=== PATIENT | female | born 1975 | race Caucasian/White ===

== ENCOUNTER 2017-03-05 05:29 | Emergency (ER) | payer SELFPAY ==
[2017-03-05 05:39] VITALS: RESP 18
[2017-03-05] MEDS ORDERED: SODIUM CHLORIDE 0.9% 1,000 ML IV STA (05:49)
[2017-03-05] MEDS ORDERED: ACETAMINOPHEN IV (For NPO) 1,000 MG in SALINE 1 100ML.BAG IVPB STA (05:50)
--- NOTE | 2017-03-05 05:53 | ED ---
Lower Extremity Injury HPI - General Source: patient, RN notes reviewed Mode of arrival: ambulatory Limitations: no limitations <Mason Tompkins - Last Filed: 03/05/17 06:50> <Leandro Degroot - Last Filed: 03/05/17 08:13> - General Chief Complaint: Extremity Injury, Lower Stated Complaint: Leg Pain Time Seen by Provider: 03/05/17 05:35 - History of Present Illness Initial Comments: This is a 41-year-old female who presents with complaints of the onset of bilateral thigh pain. She states is 10/10 dull and achy in nature does not radiate to the back she denies any trauma denies any low back pain she has had low-grade fever today denies any diarrhea sore throat or other symptomatology. No recent long trips pain. She states her hurts to move. (Mason Tompkins) - Related Data Previous Rx's Medication Instructions Recorded Cyclobenzaprine [Flexeril] 10 mg PO TID PRN #12 tablet 03/05/17 Allergies Allergy/AdvReac Type Severity Reaction Status Date / Time aspirin Allergy Rash/Hives Verified 03/05/17 06:59 NSAIDS (Non-Steroidal AdvReac Unknown Verified 03/05/17 06:59 Anti-Inflamma Review of Systems ROS Other: All systems not noted in ROS Statement are negative. <Mason Tompkins - Last Filed: 03/05/17 06:50> ROS Other: All systems not noted in ROS Statement are negative. <Lenadro Degroot - Last Filed: 03/05/17 08:13> ROS Statement: Those systems with pertinent positive or pertinent negative responses have been documented in the HPI. Past Medical History Past Medical History: Chest Pain / Angina, Renal Disease, Seizure Disorder, Thyroid Disorder Additional Past Medical History / Comment(s): HX CP ON/OFF SINCE 2008; BLOOD PRESSURE/HR LOW, LIGHTHEADED OCC. SEIZURES YOUNG CHILD, NONE SINCE AGE 4-5. HAS VERY LARGE THYROID NODULES, BX DONE, TO F/U W/ . History of Any Multi-Drug Resistant Organisms: None Reported Past Surgical History: Tubal Ligation Additional Past Surgical History / Comment(s): thyroid biopsy Past Anesthesia/Blood Transfusion Reactions: Previous Problems w/ Anesthesia Additional Past Anesthesia/Blood Transfusion Reaction / Comment(s): TAKES LONG TIME TO WAKE UP. Past Psychological History: No Psychological Hx Reported Smoking Status: Current every day smoker Past Alcohol Use History: Occasional Past Drug Use History: None Reported - Past Family History Mother Family Medical History: Cancer <Mason Tompkins - Last Filed: 03/05/17 06:50> General Exam Limitations: no limitations General appearance: alert, anxious, in distress Head exam: Present: atraumatic, normocephalic, normal inspection Eye exam: Present: normal appearance, PERRL, EOMI. Absent: scleral icterus, conjunctival injection, periorbital swelling ENT exam: Present: normal exam, mucous membranes moist Neck exam: Present: normal inspection. Absent: tenderness, meningismus, lymphadenopathy Respiratory exam: Present: normal lung sounds bilaterally. Absent: respiratory distress, wheezes, rales, rhonchi, stridor Cardiovascular Exam: Present: regular rate, normal rhythm, normal heart sounds. Absent: systolic murmur, diastolic murmur, rubs, gallop, clicks GI/Abdominal exam: Present: soft, normal bowel sounds. Absent: distended, tenderness, guarding, rebound, rigid Extremities exam: Present: normal inspection, full ROM, normal capillary refill. Absent: tenderness, pedal edema, joint swelling, calf tenderness Back exam: Present: normal inspection Neurological exam: Present: alert, oriented X3, CN II-XII intact Psychiatric exam: Present: normal affect, normal mood Skin exam: Present: warm, dry, intact, normal color. Absent: rash <Mason Tompkins - Last Filed: 03/05/17 06:50> <Leandro Degroot - Last Filed: 03/05/17 08:13> - General Exam Comments Initial Comments: This a well-developed well-nourished awake alert oriented 3 female (Mason Tompkins) Vital Signs 03/05/17 03/05/17 05:33 07:36 Temperature 99.3 F 97.7 F Pulse Rate 81 85 Respiratory 18 18 Rate Blood Pressure 141/61 122/78 O2 Sat by Pulse 98 99 Oximetry Medical Decision Making - Lab Data Result diagrams: 03/05/17 06:10 03/05/17 06:10 - Radiology Data Radiology results: report reviewed (I did review the imaging and reports no acute findings.), image reviewed <Mason Tompkins - Last Filed: 03/05/17 06:50> - Lab Data Result diagrams: 03/05/17 06:10 03/05/17 06:10 <Leandro Degroot - Last Filed: 03/05/17 08:13> - Medical Decision Making Patient reevaluated and symptom-free following ofirmev. Patient states discomfort felt like muscle spasm of her thighs. No pain on exam. No swelling. No calf tenderness. No weakness. Pedal pulses 2/2 bilateral. Patient updated on results. (Leandro Degroot) - Lab Data Lab Results 03/05/17 03/05/17 03/05/17 Range/Units 06:10 06:10 06:10 WBC 5.0 (3.8-10.6) k/uL RBC 4.40 (3.80-5.40) m/uL Hgb 13.0 (11.4-16.0) gm/dL Hct 39.8 (34.0-46.0) % MCV 90.5 (80.0-100.0) fL MCH 29.5 (25.0-35.0) pg MCHC 32.6 (31.0-37.0) g/dL RDW 14.4 (11.5-15.5) % Plt Count 248 (150-450) k/uL Neutrophils % 49 % Lymphocytes % 35 % Monocytes % 6 % Eosinophils % 5 % Basophils % 1 % Neutrophils # 2.4 (1.3-7.7) k/uL Lymphocytes # 1.8 (1.0-4.8) k/uL Monocytes # 0.3 (0-1.0) k/uL Eosinophils # 0.3 (0-0.7) k/uL Basophils # 0.1 (0-0.2) k/uL Sodium 140 (137-145) mmol/L Potassium 4.4 (3.5-5.1) mmol/L Chloride 106 (98-107) mmol/L Carbon Dioxide 25 (22-30) mmol/L Anion Gap 9 mmol/L BUN 11 (7-17) mg/dL Creatinine 0.61 (0.52-1.04) mg/dL Est GFR (MDRD) Af Amer >60 (>60 ml/min/1.73 sqM) Est GFR (MDRD) Non-Af >60 (>60 ml/min/1.73 sqM) Glucose 121 H (74-99) mg/dL Calcium 8.9 (8.4-10.2) mg/dL Magnesium 1.9 (1.6-2.3) mg/dL Total Bilirubin 0.2 (0.2-1.3) mg/dL AST 30 (14-36) U/L ALT 42 (9-52) U/L Alkaline Phosphatase 69 (38-126) U/L Total Creatine Kinase 76 (30-135) U/L CK-MB (CK-2) <0.2 (0.0-2.4) ng/mL CK-MB (CK-2) Rel Index Total Protein 6.4 (6.3-8.2) g/dL Albumin 3.9 (3.5-5.0) g/dL Urine Color Urine Appearance (Clear) Urine pH (5.0-8.0) Ur Specific [employer] (1.001-1.035) Urine Protein (Negative) Urine Glucose (UA) (Negative) Urine Ketones (Negative) Urine Blood (Negative) Urine Nitrite (Negative) Urine Bilirubin (Negative) Urine Urobilinogen (<2.0) mg/dL Ur Leukocyte Esterase (Negative) Urine RBC (0-5) /hpf Urine WBC (0-5) /hpf Ur Squamous Epith Cells (0-4) /hpf Urine Mucus (None) /hpf 03/05/17 Range/Units 06:15 WBC (3.8-10.6) k/uL RBC (3.80-5.40) m/uL Hgb (11.4-16.0) gm/dL Hct (34.0-46.0) % MCV (80.0-100.0) fL MCH (25.0-35.0) pg MCHC (31.0-37.0) g/dL RDW (11.5-15.5) % Plt Count (150-450) k/uL Neutrophils % % Lymphocytes % % Monocytes % % Eosinophils % % Basophils % % Neutrophils # (1.3-7.7) k/uL Lymphocytes # (1.0-4.8) k/uL Monocytes # (0-1.0) k/uL Eosinophils # (0-0.7) k/uL Basophils # (0-0.2) k/uL Sodium (137-145) mmol/L Potassium (3.5-5.1) mmol/L Chloride (98-107) mmol/L Carbon Dioxide (22-30) mmol/L Anion Gap mmol/L BUN (7-17) mg/dL Creatinine (0.52-1.04) mg/dL Est GFR (MDRD) Af Amer (>60 ml/min/1.73 sqM) Est GFR (MDRD) Non-Af (>60 ml/min/1.73 sqM) Glucose (74-99) mg/dL Calcium (8.4-10.2) mg/dL Magnesium (1.6-2.3) mg/dL Total Bilirubin (0.2-1.3) mg/dL AST (14-36) U/L ALT (9-52) U/L Alkaline Phosphatase (38-126) U/L Total Creatine Kinase (30-135) U/L CK-MB (CK-2) (0.0-2.4) ng/mL CK-MB (CK-2) Rel Index Total Protein (6.3-8.2) g/dL Albumin (3.5-5.0) g/dL Urine Color Light Yellow Urine Appearance Cloudy H (Clear) Urine pH 7.0 (5.0-8.0) Ur Specific [employer] 1.007 (1.001-1.035) Urine Protein Negative (Negative) Urine Glucose (UA) Negative (Negative) Urine Ketones Negative (Negative) Urine Blood Negative (Negative) Urine Nitrite Negative (Negative) Urine Bilirubin Negative (Negative) Urine Urobilinogen <2.0 (<2.0) mg/dL Ur Leukocyte Esterase Small H (Negative) Urine RBC 1 (0-5) /hpf Urine WBC 3 (0-5) /hpf Ur Squamous Epith Cells 13 H (0-4) /hpf Urine Mucus Rare H (None) /hpf Disposition <Mason Tompkins - Last Filed: 03/05/17 06:50> Time of Disposition: 08:13 <Leandro Degroot - Last Filed: 03/05/17 08:13> Clinical Impression: Muscle pain Disposition: HOME SELF-CARE Condition: Stable Instructions: Muscle Spasm (ED), Musculoskeletal Pain (ED) Additional Instructions: Please follow-up to in the next day or 2 for recheck. Return for weakness, increased pain, fevers, swelling, worsening symptoms or other concerns. Prescriptions: Cyclobenzaprine [Flexeril] 10 mg PO TID PRN #12 tablet PRN Reason: Pain Referrals: Turner Palmer DO [Primary Care Provider] - 1-2 days
[2017-03-05 06:31] LABS: ALT 42 U/L (9-52); AST 30 U/L (14-36); Albumin 3.9 g/dL (3.5-5.0); Alkaline Phosphatase 69 U/L (38-126); Anion Gap 9 mmol/L; Blood Urea Nitrogen 11 mg/dL (7-17); Calcium 8.9 mg/dL (8.4-10.2); Carbon Dioxide 25 mmol/L (22-30); Chloride 106 mmol/L (98-107); Glucose 121 mg/dL (74-99); Magnesium 1.9 mg/dL (1.6-2.3); Potassium 4.4 mmol/L (3.5-5.1); Sodium 140 mmol/L (137-145); Total Bilirubin 0.2 mg/dL (0.2-1.3); Total Protein 6.4 g/dL (6.3-8.2)
[2017-03-05 06:36] LABS: Basophils # (A) 0.1 k/uL (0-0.2); Basophils % (A) 1 %; Eosinophils # (A) 0.3 k/uL (0-0.7); Eosinophils % (A) 5 %; HCT 39.8 % (34.0-46.0); Lymphocytes # (A) 1.8 k/uL (1.0-4.8); Lymphocytes % (A) 35 %; MCH 29.5 pg (25.0-35.0); MCHC 32.6 g/dL (31.0-37.0); MCV 90.5 fL (80.0-100.0); Mean Platelet Volume 6.6; Monocytes # (A) 0.3 k/uL (0-1.0); Monocytes % (A) 6 %; Neutrophils # (A) 2.4 k/uL (1.3-7.7); Neutrophils % (A) 49 %; Platelet Count 248 k/uL (150-450); RDW 14.4 % (11.5-15.5)
--- NOTE | 2017-03-05 06:41 | XR ---
EXAMINATION TYPE: XR chest 2V DATE OF EXAM: 03/05/2017 COMPARISON: NONE HISTORY: Cough TECHNIQUE: Frontal and lateral views of the chest are obtained. FINDINGS: There is no focal air space opacity, pleural effusion, or pneumothorax seen. The cardiac silhouette size is within normal limits. The osseous structures are intact. IMPRESSION: No suspicious acute pulmonary process.
--- NOTE | 2017-03-05 06:42 | XR ---
EXAMINATION TYPE: XR lumbosacral spine min 4V DATE OF EXAM: 03/05/2017 CLINICAL HISTORY: Low back and bilateral thigh pain TECHNIQUE: Frontal, lateral, and oblique images of the lumbar spine are obtained. COMPARISON: CT abdomen and pelvis March 10, 2015. FINDINGS: There are 5 lumbar type vertebral bodies identified. The lumbar spine shows satisfactory alignment without evidence of acute fracture or dislocation. Vertebral body heights and disk space he ights are within normal limits. The oblique images appear within normal limits. The overlying soft tissue appears unremarkable. IMPRESSION: No acute fracture or dislocation is seen in the lumbar spine. Fairly unremarkable study. No significant change from comparison CT.
[2017-03-05 06:45] LABS: Appearance,Urine Cloudy (Clear); Bilirubin,Urine Negative (Negative); Blood,Urine Negative (Negative); Color,Urine Light Yellow; Glucose,Urine (UA) Negative (Negative); Ketones,Urine Negative (Negative); Leukocyte Esterase,Urine Small (Negative); Mucus,Urine Rare /hpf; Nitrite,Urine Negative (Negative); Protein,Urine Negative (Negative); RBC,Urine 1 /hpf (0-5); Specific Gravity,Urine 1.007 (1.001-1.035); Squamous Epithelial Cell,Urine 13 /hpf (0-4); Urobilinogen,Urine <2.0 mg/dL (<2.0); WBC,Urine 3 /hpf (0-5)
[2017-03-05 06:53] LABS: Creatine Kinase 76 U/L (30-135)
[2017-03-05 07:03] LABS: Creatine Kinase MB <0.2 ng/mL (0.0-2.4)
[2017-03-05 08:22] VITALS: BP 128/72; PULSE 78; TEMP 98
== END 2017-03-05 08:22 | disposition home or self-care (01) ==
LOC: EC 05:29
DX: M79.1 Myalgia (principal); F17.200 Nicotine dependence, unspecified, uncomplicated; Z88.6 Allergy status to analgesic agent
CPT/HCPCS: 36415; 80053; 82550; 82553; 83735; 85025; 81001; 72110; 71046; 99283; 96365; J0131

== ENCOUNTER 2018-01-12 09:26 | Emergency (ER) | payer OTHER ==
[2018-01-12 09:36] VITALS: RESP 18
[2018-01-12] MEDS ORDERED: KETOROLAC 60 MG/2 ML VIAL IM STA (09:46)
--- NOTE | 2018-01-12 09:50 | ED ---
General Adult HPI - General Chief complaint: Chest Pain Stated complaint: CHEST PAIN Time Seen by Provider: 01/12/18 09:30 Source: patient, EMS, RN notes reviewed Mode of arrival: EMS Limitations: no limitations - History of Present Illness Initial comments: This is a 42-year-old female who presents emergency department complaining of right-sided chest pain. Patient states it started 1 week ago when she had a big sneeze and ever since that it hurts to touch. It hurts take a deep breath per patient states the symptoms seem to be getting worse per patient denies any anterior chest pain. Patient denies any difficulty breathing shortness of breath though it does hurt to take a deep breath. Patient denies any diaphoretic episodes. Patient denies any radiation of pain. Patient denies any nausea vomiting per patient denies any abdominal pain. Patient states the pain is reproducible with palpation on her chest per patient states she breathes shallowly does not hurt. Patient states she normally doesn't take NSAIDs because she feels as though it makes her loopy but she states she is not actually ALLERGIC to them. Patient is requesting an NSAID at this time. Patient is not a diabetic is not hypertensive does not have high cholesterol. Patient states she has no family history of heart disease. Patient states she has an occasional smoker. Patient states she has noted no increase in pain with exertion. - Related Data Home Medications Medication Instructions Recorded Confirmed No Known Home Medications 01/12/18 01/12/18 Allergies Allergy/AdvReac Type Severity Reaction Status Date / Time aspirin Allergy Rash/Hives Verified 01/12/18 10:14 NSAIDS (Non-Steroidal AdvReac Unknown Verified 01/12/18 10:14 Anti-Inflamma Review of Systems ROS Statement: Those systems with pertinent positive or pertinent negative responses have been documented in the HPI. ROS Other: All systems not noted in ROS Statement are negative. Past Medical History Past Medical History: Chest Pain / Angina, Renal Disease, Seizure Disorder, Thyroid Disorder Additional Past Medical History / Comment(s): HX CP ON/OFF SINCE 2008; BLOOD PRESSURE/HR LOW, LIGHTHEADED OCC. SEIZURES YOUNG CHILD, NONE SINCE AGE 4-5. HAS VERY LARGE THYROID NODULES, BX DONE, TO F/U W/ . History of Any Multi-Drug Resistant Organisms: None Reported Past Surgical History: Tubal Ligation Additional Past Surgical History / Comment(s): thyroid biopsy Past Anesthesia/Blood Transfusion Reactions: Previous Problems w/ Anesthesia Additional Past Anesthesia/Blood Transfusion Reaction / Comment(s): TAKES LONG TIME TO WAKE UP. Past Psychological History: No Psychological Hx Reported Smoking Status: Current every day smoker Past Alcohol Use History: Occasional Past Drug Use History: None Reported - Past Family History Mother Family Medical History: Cancer General Exam - General Exam Comments Initial Comments: GENERAL: Patient is well-developed and well-nourished. Patient is nontoxic and well- hydrated and is in mild distress. ENT: Neck is soft and supple. No significant lymphadenopathy is noted. Oropharynx is clear. Moist mucous membranes. Neck has full range of motion without eliciting any pain. EYES: The sclera were anicteric and conjunctiva were pink and moist. Extraocular movements were intact and pupils were equal round and reactive to light. Eyelids were unremarkable. PULMONARY: Unlabored respirations. Good breath sounds bilaterally. No audible rales rhonchi or wheezing was noted. CARDIOVASCULAR: There is a regular rate and rhythm without any murmurs gallops or rubs. Patient 's right-sided chest pain above the breast is very tender to palpation. ABDOMEN: Soft and nontender with normal bowel sounds. SKIN: Skin is clear with no lesions or rashes and otherwise unremarkable. NEUROLOGIC: Patient is alert and oriented x3. Cranial nerves II through XII are grossly intact. Motor and sensory are also intact. Normal speech, volume and content. Symmetrical smile. MUSCULOSKELETAL: Normal extremities with adequate strength and full range of motion. No lower extremity swelling or edema. No calf tenderness. LYMPHATICS: No significant lymphadenopathy is noted PSYCHIATRIC: Normal psychiatric evaluation. Limitations: no limitations Course Vital Signs 01/12/18 09:32 Temperature 97.8 F Pulse Rate 78 Respiratory 18 Rate Blood Pressure 110/73 O2 Sat by Pulse 98 Oximetry Medical Decision Making - Medical Decision Making EKG shows normal sinus rhythm at 79 bpm OR interval is on a 58 QRS is 74 Q-T intervals 372 QTC is 426. Patient's EKG shows no ST segment elevation or depression or T wave abnormalities are noted. Chest x-ray shows no acute abnormality. Patient states the Toradol did help her pain. Patient states she will take Motrin at home. Disposition Clinical Impression: Chest wall pain Disposition: HOME SELF-CARE Condition: Good Instructions: Chest Wall Pain (ED), Chest Pain (ED) Is patient prescribed a controlled substance at d/c from ED?: No Referrals: None,Stated [Primary Care Provider] - 1-2 days Time of Disposition: 11:20
--- NOTE | 2018-01-12 10:19 | XR ---
EXAMINATION TYPE: XR chest 2V DATE OF EXAM: 01/12/2018 COMPARISON: Chest x-ray March 05, 2017. HISTORY: Right-sided chest pain after sneezing injury. TECHNIQUE: Frontal and lateral views of the chest are obtained. FINDINGS: There is no focal air space opacity, pleural effusion, or pneumothorax seen. The cardiac silhouette size is within normal limits. The osseous structures are intact. IMPRESSION: No acute cardiopulmonary process. No significant change from prior.
[2018-01-12 11:43] VITALS: BP 100/68; PULSE 86; TEMP 98.2
== END 2018-01-12 11:40 | disposition home or self-care (01) ==
LOC: EC 09:26
DX: R07.89 Other chest pain (principal); F17.200 Nicotine dependence, unspecified, uncomplicated; Z88.6 Allergy status to analgesic agent
CPT/HCPCS: 99285; 96372; 71046; J1885

== ENCOUNTER 2018-01-18 13:43 | Emergency (ER) | payer OTHER ==
[2018-01-18 13:51] VITALS: RESP 18
[2018-01-18] MEDS ORDERED: MORPHINE SULFATE 4 MG/ML SYRINGE IV STA (14:09)
--- NOTE | 2018-01-18 14:38 | ED ---
General Adult HPI - General Chief complaint: Chest Pain Stated complaint: Chest pain Time Seen by Provider: 01/18/18 13:58 Source: patient, RN notes reviewed, old records reviewed Mode of arrival: ambulatory Limitations: no limitations - History of Present Illness Initial comments: 42-year-old female presents for reevaluation of right-sided chest pain. Patient 's pain began approximately 10 days ago, initially began with sudden onset chest pain after a cough. She has had significant pain since that time. She has been taking Motrin with minimal relief. She does report some cough and subjective fever and chills. Denies sputum production. Denies URI symptoms. No central substernal chest pain. No history of CAD. Patient also reports some abdominal pain which is chronic in nature. This does include right upper quadrant abdominal pain. Denies vomiting. Denies change in bowel movements. - Related Data Home Medications Medication Instructions Recorded Confirmed Acetaminophen Tab [Tylenol Tab] 500 mg PO Q6HR PRN 01/18/18 01/18/18 Ibuprofen [Motrin Ib] 600 mg PO Q6HR PRN 01/18/18 01/18/18 Allergies Allergy/AdvReac Type Severity Reaction Status Date / Time aspirin Allergy Rash/Hives Verified 01/18/18 14:11 NSAIDS (Non-Steroidal AdvReac Unknown Verified 01/18/18 14:11 Anti-Inflamma Review of Systems ROS Statement: Those systems with pertinent positive or pertinent negative responses have been documented in the HPI. ROS Other: All systems not noted in ROS Statement are negative. Past Medical History Past Medical History: Chest Pain / Angina, Renal Disease, Seizure Disorder, Thyroid Disorder Additional Past Medical History / Comment(s): HX CP ON/OFF SINCE 2008; BLOOD PRESSURE/HR LOW, LIGHTHEADED OCC. SEIZURES YOUNG CHILD, NONE SINCE AGE 4-5. HAS VERY LARGE THYROID NODULES, BX DONE, TO F/U W/ . History of Any Multi-Drug Resistant Organisms: None Reported Past Surgical History: Tubal Ligation Additional Past Surgical History / Comment(s): thyroid biopsy Past Anesthesia/Blood Transfusion Reactions: Previous Problems w/ Anesthesia Additional Past Anesthesia/Blood Transfusion Reaction / Comment(s): TAKES LONG TIME TO WAKE UP. Past Psychological History: No Psychological Hx Reported Smoking Status: Current every day smoker Past Alcohol Use History: Occasional Past Drug Use History: None Reported - Past Family History Mother Family Medical History: Cancer General Exam Limitations: no limitations General appearance: alert, in no apparent distress Head exam: Present: atraumatic, normocephalic Eye exam: Present: normal appearance, PERRL ENT exam: Present: normal exam Neck exam: Present: normal inspection, tenderness Respiratory exam: Present: normal lung sounds bilaterally, chest wall tenderness (Right posterior chest wall tenderness). Absent: respiratory distress Cardiovascular Exam: Present: regular rate, normal rhythm GI/Abdominal exam: Present: soft, tenderness (Right upper quadrant and generalized tenderness to palpation). Absent: distended Extremities exam: Present: normal inspection, normal capillary refill. Absent: pedal edema Neurological exam: Present: alert, oriented X3, CN II-XII intact. Absent: motor sensory deficit Psychiatric exam: Present: normal affect, normal mood Skin exam: Present: warm, dry, intact. Absent: cyanosis, diaphoretic Course Vital Signs 01/18/18 13:48 Temperature 98.5 F Pulse Rate 90 Respiratory 18 Rate Blood Pressure 105/58 O2 Sat by Pulse 100 Oximetry EKG Findings - EKG Comments: EKG Findings:: EKG: Normal sinus rhythm, rate of 90, VA interval 138, QRS duration 78, QTC 428, no ST segment changes Medical Decision Making - Medical Decision Making 32-year-old female with right-sided chest pain. Pain began initially after cough. She has been taking Motrin with minimal relief. Chest x-ray repeated, negative for pneumothorax, negative for displaced rib fracture. Patient did have some right upper quadrant tenderness and EST ALT were mildly elevated, ultrasound obtained, negative for acute cholecystitis or dilatation common bile duct. Normal CBC, normal CMP. Patient given morphine with improved symptoms. She will continue Tylenol and incentive spirometer at home. She does have an incentive spirometer already. - Lab Data Result diagrams: 01/18/18 14:34 01/18/18 14:34 Lab Results 01/18/18 01/18/18 01/18/18 Range/Units 14:34 14:34 14:34 WBC 7.0 (3.8-10.6) k/uL RBC 4.61 (3.80-5.40) m/uL Hgb 13.5 (11.4-16.0) gm/dL Hct 40.8 (34.0-46.0) % MCV 88.6 (80.0-100.0) fL MCH 29.2 (25.0-35.0) pg MCHC 33.0 (31.0-37.0) g/dL RDW 13.5 (11.5-15.5) % Plt Count 417 (150-450) k/uL Neutrophils % 53 % Lymphocytes % 38 % Monocytes % 4 % Eosinophils % 1 % Basophils % 0 % Neutrophils # 3.7 (1.3-7.7) k/uL Lymphocytes # 2.6 (1.0-4.8) k/uL Monocytes # 0.3 (0-1.0) k/uL Eosinophils # 0.0 (0-0.7) k/uL Basophils # 0.0 (0-0.2) k/uL PT (9.0-12.0) sec INR (<1.2) APTT (22.0-30.0) sec Sodium 144 (137-145) mmol/L Potassium 4.1 (3.5-5.1) mmol/L Chloride 107 (98-107) mmol/L Carbon Dioxide 24 (22-30) mmol/L Anion Gap 13 mmol/L BUN 22 H (7-17) mg/dL Creatinine 0.65 (0.52-1.04) mg/dL Est GFR (CKD-EPI)AfAm >90 (>60 ml/min/1.73 sqM) Est GFR (CKD-EPI)NonAf >90 (>60 ml/min/1.73 sqM) Glucose 103 H (74-99) mg/dL Calcium 9.9 (8.4-10.2) mg/dL Magnesium 2.2 (1.6-2.3) mg/dL Total Bilirubin 0.6 (0.2-1.3) mg/dL AST 49 H (14-36) U/L ALT 62 H (9-52) U/L Alkaline Phosphatase 82 (38-126) U/L Total Creatine Kinase 70 (30-135) U/L CK-MB (CK-2) <0.2 (0.0-2.4) ng/mL CK-MB (CK-2) Rel Index Troponin I <0.012 (0.000-0.034) ng/mL NT-Pro-B Natriuret Pep pg/mL Total Protein 7.8 (6.3-8.2) g/dL Albumin 4.4 (3.5-5.0) g/dL 01/18/18 01/18/18 Range/Units 14:34 14:34 WBC (3.8-10.6) k/uL RBC (3.80-5.40) m/uL Hgb (11.4-16.0) gm/dL Hct (34.0-46.0) % MCV (80.0-100.0) fL MCH (25.0-35.0) pg MCHC (31.0-37.0) g/dL RDW (11.5-15.5) % Plt Count (150-450) k/uL Neutrophils % % Lymphocytes % % Monocytes % % Eosinophils % % Basophils % % Neutrophils # (1.3-7.7) k/uL Lymphocytes # (1.0-4.8) k/uL Monocytes # (0-1.0) k/uL Eosinophils # (0-0.7) k/uL Basophils # (0-0.2) k/uL PT 10.0 (9.0-12.0) sec INR 1.0 (<1.2) APTT 24.0 (22.0-30.0) sec Sodium (137-145) mmol/L Potassium (3.5-5.1) mmol/L Chloride (98-107) mmol/L Carbon Dioxide (22-30) mmol/L Anion Gap mmol/L BUN (7-17) mg/dL Creatinine (0.52-1.04) mg/dL Est GFR (CKD-EPI)AfAm (>60 ml/min/1.73 sqM) Est GFR (CKD-EPI)NonAf (>60 ml/min/1.73 sqM) Glucose (74-99) mg/dL Calcium (8.4-10.2) mg/dL Magnesium (1.6-2.3) mg/dL Total Bilirubin (0.2-1.3) mg/dL AST (14-36) U/L ALT (9-52) U/L Alkaline Phosphatase (38-126) U/L Total Creatine Kinase (30-135) U/L CK-MB (CK-2) (0.0-2.4) ng/mL CK-MB (CK-2) Rel Index Troponin I (0.000-0.034) ng/mL NT-Pro-B Natriuret Pep 45 pg/mL Total Protein (6.3-8.2) g/dL Albumin (3.5-5.0) g/dL Disposition Clinical Impression: Chest wall pain Disposition: HOME SELF-CARE Condition: Good Instructions: Chest Pain (ED), Costochondritis (ED) Is patient prescribed a controlled substance at d/c from ED?: No Referrals: Turner Palmer DO [Primary Care Provider] - 1-2 days Time of Disposition: 16:21
[2018-01-18 14:46] LABS: Basophils % (A) 0 %; Eosinophils % (A) 1 %; HCT 40.8 % (34.0-46.0); HGB 13.5 gm/dL (11.4-16.0); Lymphocytes # (A) 2.6 k/uL (1.0-4.8); Lymphocytes % (A) 38 %; MCH 29.2 pg (25.0-35.0); MCV 88.6 fL (80.0-100.0); Monocytes # (A) 0.3 k/uL (0-1.0); Monocytes % (A) 4 %; Neutrophils # (A) 3.7 k/uL (1.3-7.7); Neutrophils % (A) 53 %; Platelet Count 417 k/uL (150-450); RBC 4.61 m/uL (3.80-5.40); RDW 13.5 % (11.5-15.5)
[2018-01-18 14:56] LABS: ALT 62 U/L (9-52); AST 49 U/L (14-36); Albumin 4.4 g/dL (3.5-5.0); Alkaline Phosphatase 82 U/L (38-126); Anion Gap 13 mmol/L; Blood Urea Nitrogen 22 mg/dL (7-17); Calcium 9.9 mg/dL (8.4-10.2); Carbon Dioxide 24 mmol/L (22-30); Chloride 107 mmol/L (98-107); Glucose 103 mg/dL (74-99); Magnesium 2.2 mg/dL (1.6-2.3); Potassium 4.1 mmol/L (3.5-5.1); Sodium 144 mmol/L (137-145); Total Bilirubin 0.6 mg/dL (0.2-1.3); Total Protein 7.8 g/dL (6.3-8.2)
[2018-01-18 15:07] LABS: Creatine Kinase 70 U/L (30-135)
[2018-01-18 15:18] LABS: Creatine Kinase MB <0.2 ng/mL (0.0-2.4); Troponin I <0.012 ng/mL (0.000-0.034)
--- NOTE | 2018-01-18 15:22 | XR ---
EXAMINATION TYPE: XR chest 2V DATE OF EXAM: 01/18/2018 COMPARISON: 01/12/2018 HISTORY: 42-year-old female with right-sided chest pain TECHNIQUE: AP and lateral views FINDINGS: Heart normal size. Aorta and pulmonary vasculature within normal limits. Mild interstitial prominence is unchanged. No consolidation or pleural effusion. IMPRESSION: Chronic changes without acute cardiopulmonary process.
--- NOTE | 2018-01-18 16:08 | US ---
EXAMINATION TYPE: US gallbladder DATE OF EXAM: 01/18/2018 COMPARISON: US 03/27/2015, CT 03/10/2015 CLINICAL HISTORY: Pain. Chest pain. Extremely difficult and limited exam. Patient yelling and moving during entire exam due to pain EXAM MEASUREMENTS: Liver Length: 12.0 cm Gallbladder Wall: 0.2 cm CBD: 0.5 cm Right Kidney: 9.0 x 4.1 x 4.7 cm Pancreas: Tail obscured by overlying bowel gas, visualized portions wnl Liver: Homogeneous Gallbladder: No stones visualized, limited evaluation. Could not put any pressure on patient without her screaming Evidence for sonographic Owen's sign: No- patient yelled no matter where I touched her CBD: wnl as visualized, distal portion obscured by bowel gas Right Kidney: No hydronephrosis. Measuring small. Possible medullary sponge kidney vs other IMPRESSION: 1. No sonographic evidence of cholelithiasis or acute cholecystitis. Diffuse abdominal pain without f ocal point tenderness is noted throughout the examination by the building repair maintenance supervisor. 2. 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
[2018-01-18 16:41] VITALS: BP 100/62; PULSE 89; TEMP 99.2
== END 2018-01-18 16:40 | disposition home or self-care (01) ==
LOC: EC 13:43
DX: R07.89 Other chest pain (principal); R10.11 Right upper quadrant pain; R05 Cough; R74.0 Nonspecific elevation of levels of transaminase and lactic acid dehydrogenase [LDH]; F17.200 Nicotine dependence, unspecified, uncomplicated; Z88.6 Allergy status to analgesic agent
CPT/HCPCS: 36415; 71046; 76705; 80053; 82550; 82553; 83735; 83880; 84484; 85025; 85610; 85730; 93005; 96374; 99285

== ENCOUNTER → 2018-10-14 | Outpatient (CLI) | payer OTHER ==
[2018-10-14 12:32] LABS: Basophils % (A) 0 %; Eosinophils # (A) 0.2 k/uL (0-0.7); Eosinophils % (A) 2 %; HCT 40.1 % (34.0-46.0); Lymphocytes # (A) 2.7 k/uL (1.0-4.8); Lymphocytes % (A) 34 %; MCH 29.2 pg (25.0-35.0); MCHC 32.5 g/dL (31.0-37.0); MCV 89.8 fL (80.0-100.0); Mean Platelet Volume 5.9; Monocytes # (A) 0.3 k/uL (0-1.0); Monocytes % (A) 4 %; Neutrophils # (A) 4.4 k/uL (1.3-7.7); Neutrophils % (A) 56 %; Platelet Count 375 k/uL (150-450); RBC 4.46 m/uL (3.80-5.40); RDW 13.9 % (11.5-15.5); WBC 7.9 k/uL (3.8-10.6)
[2018-10-14 13:48] LABS: Erythrocyte Sedimentation Rate 9 mm/hr (0-20)
[2018-10-14 18:56] LABS: African American GFR (CKD) 123.9 (60.0-200.0); Albumin 4.5 g/dL (3.80-4.90); Albumin/Globulin Ratio 2.37 (1.60-3.17); Anion Gap 5.9 mmol/L (4.00-12.00); BUN/Creat Ratio 25.71 Ratio (12.00-20.00); Calcium 9.1 mg/dL (8.7-10.3); Carbon Dioxide 25.1 mmol/L (21.6-31.8); Globulin 1.9 g/dL (1.6-3.3); LDL Cholesterol,Calculated 135.4 mg/dL (0.0-131.0); Potassium 4.2 mmol/L (3.5-5.5); Total Bilirubin 0.4 mg/dL (0.3-1.2); Total Protein 6.4 g/dL (6.2-8.2); VLDL Calculation 20.6 mg/dL (5.00-40.00)
[2018-10-14 19:04] LABS: T4, Free (Free Thyroxine) 1.1 ng/dL (0.80-1.80)
[2018-10-14 19:44] LABS: HIV 1 AB Non-Reactive (Non-Reactive); HIV AB P24 Non-Reactive (Non-Reactive); HIV P24 AG Non-Reactive (Non-Reactive)
== END | disposition home or self-care (01) ==
LOC: LABWHC1 12:11
PROVIDERS: ATTEND Family Medicine
DX: Z00.00 Encounter for general adult medical examination without abnormal findings (principal); E04.2 Nontoxic multinodular goiter; E66.3 Overweight; R53.83 Other fatigue; R16.0 Hepatomegaly, not elsewhere classified; R10.12 Left upper quadrant pain; R10.11 Right upper quadrant pain; R14.0 Abdominal distension (gaseous)
CPT/HCPCS: 36415; 80053; 80061; 80074; 82607; 84439; 84443; 85025; 85652; 87390

== ENCOUNTER → 2018-10-29 | Outpatient (CLI) | payer OTHER ==
--- NOTE | 2018-10-29 08:05 | US ---
EXAMINATION TYPE: US thyroid st tissue head/neck DATE OF EXAM: 10/29/2018 COMPARISON: US 03/27/2015 and 06/08/2014 CLINICAL HISTORY: E04.2 THYROID NODULES. Thyroid nodules, history of FNA GLAND SIZE: Right Lobe: 4.6 x 1.2 x 1.6 cm Overall Parenchyma: homogenous Left Lobe: 4.2 x 1.1 x 1.3 cm Overall Parenchyma: homogeneous Isthmus Thickness: 0.4 cm NODULES RIGHT: # of nodules measured on right: 1 1. 1.1 X 1.0 x 1.1 cm hypoechoic solid nodule at the mid pole with poorly defined margins. This nod ule is taller than wide and shows intranodular vascularity. Prior size: 0.8 x 0.8 x 0.8 cm LEFT: # of nodules measured on left: 0 Small nodule seen on 2016 ultrasound no seen on today's study ISTHMUS: # of nodules measured in the isthmus: 1 1. 1.1 X 0.8 x 0.9 cm hypoechoic solid nodule at the right portion of the isthmus with poorly defin ed margins. This nodule is wider than tall and shows intranodular vascularity. Prior size: 1.1 x 0.7 x 1.0 cm Bilateral neck scanned, no evidence of lymphadenopathy. IMPRESSION: Stable size of the isthmic nodule and only minimal interval growth of the right solid thyroid nodule in comparison to the exam of 2016 (only minimal growth in comparison to 2015. Follow-up is recommende d.
--- NOTE | 2018-10-29 09:36 | US ---
EXAMINATION TYPE: US abdomen complete DATE OF EXAM: 10/29/2018 COMPARISON: US 2018 CLINICAL HISTORY: R14.0 abdominal bloating, R10.11 abdominal pain,. Abdomen pain, bloating and heartb urn x 5 months EXAM MEASUREMENTS: Liver Length: 15.6 cm Gallbladder Wall: 0.2 cm CBD: 0.5 cm Spleen: 10.6 cm Right Kidney: 9.6 x 4.4 x 4.6 cm Left Kidney: 10.5 x 5.3 x 5.6 cm Pancreas: visualized portions wnl, limited by overlying midline bowel gas Liver: wnl Gallbladder: wnl Evidence for sonographic Owen's sign: yes CBD: visualized portions wnl, limited by overlying bowel gas Spleen: visualized portions wnl, limited by overlying bowel gas Right Kidney: no hydronephrosis or masses seen, possible medullary sponge kidney vs. other. Cortical renal thinning. Left Kidney: no hydronephrosis or masses seen, possible medullary sponge kidney vs. other. Cortical renal thinning. Upper IVC: wnl Abd Aorta: visualized portions wnl, limited by overlying midline bowel gas IMPRESSION: Overall suboptimal exam given diffuse overlying bowel gas as detailed above. 1. 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 2. Positive sonographic Owen sign is seen however no convincing evidence of cholelithiasis nor acut e cholecystitis is seen sonographically. The common bile duct is slightly obscured by overlying bowel gas. Consideration could be given to HIDA scan with CCK to evaluate for chronic cholecystitis or pan iary dyskinesia.
== END | disposition home or self-care (01) ==
LOC: RADUSWWP 06:57
PROVIDERS: ATTEND Family Medicine
DX: E04.1 Nontoxic single thyroid nodule (principal); R14.0 Abdominal distension (gaseous); R16.0 Hepatomegaly, not elsewhere classified
CPT/HCPCS: 76536; 76700

== ENCOUNTER → 2018-11-10 | Outpatient (CLI) | payer OTHER ==
--- NOTE | 2018-11-12 11:46 | MM ---
Reason for exam: screening (asymptomatic). Last mammogram was performed 5 years and 8 months ago. History: Patient has history of other cancer at age 6. Family history of breast cancer in maternal aunt at age 47 and breast cancer in cousin at age 40. Physical Findings: A clinical breast exam by your physician is recommended on an annual basis and results should be correlated with mammographic findings. MG Screening Mammo w CAD Bilateral CC and MLO view(s) were taken. Prior study comparison: March 24, 2013, bilateral digital screening mammo w/CAD. There are scattered fibroglandular densities. Stable benign calcifications. There is no discrete abnormality. No significant changes when compared with prior studies. ASSESSMENT: Benign, BI-RAD 2 RECOMMENDATION: Routine screening mammogram of both breasts in 1 year.
== END | disposition home or self-care (01) ==
LOC: RADMAMWWP 14:55
PROVIDERS: ATTEND Family Medicine
DX: Z12.31 Encounter for screening mammogram for malignant neoplasm of breast (principal)
CPT/HCPCS: 77067

== ENCOUNTER → 2018-11-19 | Outpatient (CLI) | payer OTHER ==
--- NOTE | 2018-11-19 13:54 | US ---
EXAMINATION TYPE: US transvaginal DATE OF EXAM: 11/19/2018 COMPARISON: NONE CLINICAL HISTORY: R14.0 Abdominal Bloating R10.9 Pain in the abdomen. distended abd, constipated TECHNIQUE: TV. Transvaginal sonographic images Date of LMP: 10/30/2018 EXAM MEASUREMENTS: Uterus: 9.1 x 5.0 x 4.4 cm Endometrial Stripe: 0.6 cm Right Ovary: N/A cm Left Ovary: N/A cm 1. Uterus: Anteverted wnl 2. Endometrium: wnl 3. Right Ovary: not seen due to bowel gas 4. Left Ovary: not seen due to bowel gas 5. Bilateral Adnexa: bowel gas bilaterally 6. Posterior cul-de-sac: wnl * imaged transabdominally in attempt to see ovarian tissue, still could not visualize either ovary. IMPRESSION: 1. Limited visualization due to bowel gas. 2. The uterus as visualized appears within normal limits.
== END ==
LOC: RADUSWWP 11:03
PROVIDERS: ATTEND Family Medicine
DX: R10.9 Unspecified abdominal pain (principal); R14.0 Abdominal distension (gaseous)
CPT/HCPCS: 76830

== ENCOUNTER → 2019-04-15 | Outpatient (CLI) | payer OTHER ==
[2019-04-15 12:53] LABS: Basophils % (A) 0 %; Eosinophils # (A) 0.1 k/uL (0-0.7); Eosinophils % (A) 1 %; HCT 40.9 % (34.0-46.0); HGB 13.1 gm/dL (11.4-16.0); Lymphocytes # (A) 3.2 k/uL (1.0-4.8); Lymphocytes % (A) 37 %; MCH 28.3 pg (25.0-35.0); MCHC 32.2 g/dL (31.0-37.0); Mean Platelet Volume 6.4; Monocytes # (A) 0.3 k/uL (0-1.0); Monocytes % (A) 4 %; Neutrophils # (A) 4.6 k/uL (1.3-7.7); Neutrophils % (A) 54 %; Platelet Count 490 k/uL (150-450); RBC 4.64 m/uL (3.80-5.40); RDW 13.9 % (11.5-15.5); WBC 8.5 k/uL (3.8-10.6)
--- NOTE | 2019-04-15 13:10 | XR ---
EXAMINATION TYPE: XR chest 2V DATE OF EXAM: 04/15/2019 COMPARISON: NONE HISTORY: Chest pain TECHNIQUE: Frontal and lateral views of the chest are obtained. FINDINGS: There is no focal air space opacity. No evidence for pneumothorax. No pleural effusion. The cardiac silhouette size is within normal limits. The osseous structures are grossly intact. IMPRESSION: 1. No acute cardiopulmonary process.
[2019-04-15 19:10] LABS: Follicle Stimulating Hormone 18.2 mIU/mL; Luteinizing Hormone 17.3 mIU/mL; Prolactin 9.2 ng/mL (2.8-29.2)
== END | disposition home or self-care (01) ==
LOC: LABWHC1 11:35
PROVIDERS: ATTEND Family Medicine
DX: R07.81 Pleurodynia (principal); R53.83 Other fatigue; N92.6 Irregular menstruation, unspecified
CPT/HCPCS: 36415; 71046; 83001; 83002; 84146; 84403; 84443; 85025